=== PATIENT | male | born 1945 | race Hispanic/Latino ===

== ENCOUNTER → 2023-10-20 | Outpatient (CLI) | payer MEDICARE ==
[~2023-10-20] MED LIST: IOHEXOL 350 MG/ML 100ML INFUS..BTL IV ONE
== END | disposition home or self-care (01) ==
LOC: RAH 07:28
PROVIDERS: ATTEND Student in an Organized Health Care Education/Training Program
DX: I25.10 Atherosclerotic heart disease of native coronary artery without angina pectoris (principal); R07.89 Other chest pain
CPT/HCPCS: 75574; Q9967